=== PATIENT | female | born 1955 | race Caucasian/White ===

== ENCOUNTER 2022-04-16 19:22 | Inpatient (IN) ==
[2022-04-16] MEDS ORDERED: Cefepime 1 GM in NS 0.9% 50 ML 50 ML IVPB ONE (19:25)
[2022-04-16] MEDS ORDERED: methylPREDNISolone SOD SUCC 125 mg 2 ML VIAL IV ONE (19:25)
[2022-04-16] MEDS ORDERED: NS 0.9% 1000 ml BAG 1,000 ML IV ONE (19:25)
[2022-04-16] MEDS ORDERED: Vancomycin 1,000 MG in NS 0.9% 250 ml 250 ML IVPB ONE (19:25)
[2022-04-16] MEDS ORDERED: Vancomycin 1,000 MG - ED ONCE IVPB ONE (19:30)
[2022-04-16] MEDS ORDERED: Cefepime 1 GM IV - ED ONCE IV ONE (19:30)
[2022-04-16 19:53] LABS: Hematocrit 27 % (35-47); Hemoglobin 8.6 g/dL (12.0-16.0); Mean Corpuscular HGB Conc 32 g/dL (31-36); Mean Corpuscular Hemoglobin 29 pg (27-31); Mean Corpuscular Volume 89 fL (80-97); Mean Platelet Volume 8.3 fL (7.4-10.4); Platelet Count 309 10^3/uL (150-450); Red Blood Count 3.02 10^6 /uL (3.70-4.87); Red Cell Distribution Width 17 % (10-15); White Blood Count 8.6 10^3/uL (3.5-10.8)
[2022-04-16 20:31] LABS: Albumin 3.8 g/dL (3.2-5.2); Albumin/Globulin Ratio 1.5 (1-3); C Reactive Protein 49.99 mg/L (<8.01); Globulin 2.5 g/dL (2-4); Potassium 3.3 mmol/L (3.5-5.0); Total Bilirubin 0.4 mg/dL (0.2-1.0); Total Protein 6.3 g/dL (6.4-8.9)
[2022-04-16 20:35] LABS: CKMB ng/mL 2.8 ng/mL (0.6-6.3)
[2022-04-16 20:36] LABS: ABS Basophils 0.1 10^3/ul (0-0.2); ABS Eosinophils 0.1 10^3/ul (0-0.6); ABS Lymphocytes 1.9 10^3/ul (1.0-4.8); ABS Monocytes 1.1 10^3/ul (0-0.8); ABS Neutrophils 5.3 10^3/ul (1.5-7.7); Eosinophil % 1.6 %; Lymphocyte % 21.9 %; Nucleated Red Blood Cells % 0.1
[2022-04-16] MEDS ORDERED: Iodixanol (CONTRAST) 320 MG/ML 100 ML SDV IV ONE (20:43)
[2022-04-16 21:29] LABS: High Sensitivity Troponin 1 Hr 54 pg/mL (<15)
[2022-04-17] MEDS ORDERED: Nicotine GUM 4MG FRUIT FLAVOR PO PRN (00:57)
[2022-04-17] MEDS ORDERED: Albuterol HFA INHALER 8 gm MDI INH PRN (00:57)
[2022-04-17] MEDS ORDERED: Potassium Chlor 20 meq TAB.ER PO ONE (06:09)
[2022-04-17] MEDS ORDERED: Mometasone/Formoter 200/5 MDI INH SCH (07:00)
[2022-04-17 08:09] LABS: Hematocrit 26 % (35-47); Hemoglobin 8.5 g/dL (12.0-16.0); Mean Corpuscular HGB Conc 33 g/dL (31-36); Mean Corpuscular Hemoglobin 29 pg (27-31); Mean Corpuscular Volume 90 fL (80-97); Platelet Count 253 10^3/uL (150-450); Red Blood Count 2.89 10^6 /uL (3.70-4.87); Red Cell Distribution Width 17 % (10-15); White Blood Count 6.2 10^3/uL (3.5-10.8)
[2022-04-17] MEDS: SPIRIVA Respimat (tiotropium) 2.5 mcg/inh Inhaler INH SCH (08:40)
[2022-04-17 09:02] LABS: Calcium 8.7 mg/dL (8.6-10.3); Magnesium 1.8 mg/dL (1.9-2.7); Potassium 4.1 mmol/L (3.5-5.0); eGFR CKD-EPI 63.7 (>60)
[2022-04-17] MEDS ORDERED: Dextrose 50% Syringe 50 ml 25 GM/50 ML SYRINGE IV PUSH PRN (09:03)
[2022-04-17] MEDS ORDERED: Furosemide 20 mg/2 ml IV VIAL IV ONE (09:05)
[2022-04-17] MEDS ORDERED: Furosemide 20 mg/2 ml IV VIAL ONE (09:14)
[2022-04-17 10:30] LABS: ABS Lymphocytes 0.5 10^3/ul (1.0-4.8); ABS Monocytes 0.1 10^3/ul (0-0.8); ABS Neutrophils 5.5 10^3/ul (1.5-7.7); Lymphocyte % 8.7 %
[2022-04-17 10:32] LABS: RBC Morphology Normal (Normal)
[2022-04-17] MEDS: cefTRIAXone 1 gm/50 mL D5W 1 GM/50 ML BAG IV SCH (13:03)
[2022-04-17] MEDS ORDERED: Perflutren Lipid Microsphere 3 ML VIAL ONE (13:31)
[2022-04-17] MEDS ORDERED: Magnesium Sulfate IV 1GM/100ML 1 GM/100 ML BAG IV ONE (14:46)
[2022-04-17] MEDS: Albuterol HFA INHALER 8 gm MDI INH PRN (23:07)
[2022-04-18 06:51] LABS: Magnesium 2.2 mg/dL (1.9-2.7)
[2022-04-18] MEDS: SPIRIVA Respimat (tiotropium) 2.5 mcg/inh Inhaler INH SCH (07:15)
[2022-04-18 08:14] LABS: ABS Basophils 0.1 10^3/ul (0-0.2); ABS Lymphocytes 1.1 10^3/ul (1.0-4.8); ABS Monocytes 1.2 10^3/ul (0-0.8); ABS Neutrophils 8.7 10^3/ul (1.5-7.7); Hematocrit 25 % (35-47); Hemoglobin 8.1 g/dL (12.0-16.0); Lymphocyte % 9.6 %; Mean Corpuscular HGB Conc 32 g/dL (31-36); Mean Corpuscular Hemoglobin 29 pg (27-31); Mean Corpuscular Volume 91 fL (80-97); Mean Platelet Volume 11.1 fL (7.4-10.4); Platelet Count 279 10^3/uL (150-450); Red Blood Count 2.78 10^6 /uL (3.70-4.87); Red Cell Distribution Width 17 % (10-15); White Blood Count 11.1 10^3/uL (3.5-10.8)
[2022-04-18 08:25] LABS: Calcium 9.2 mg/dL (8.6-10.3); Potassium 4.5 mmol/L (3.5-5.0)
[2022-04-18] MEDS ORDERED: Albuterol 2.5mg/3 ml (0.083%) NEB.SOLN INH PRN (09:16)
[2022-04-18] MEDS: methylPREDNISolone SOD SUCC 125 mg 2 ML VIAL IV SCH ×2 (09:28→20:28)
[2022-04-18] MEDS: Albuterol HFA INHALER 8 gm MDI INH PRN (09:28)
[2022-04-18] MEDS: cefTRIAXone 1 gm/50 mL D5W 1 GM/50 ML BAG IV SCH (09:33)
[2022-04-18 10:06] LABS: Ferritin 185.3 ng/mL (11-307)
[2022-04-18 10:09] LABS: Folate 6.57 ng/mL (5.90-24.80)
[2022-04-18] MEDS ORDERED: Albuterol 2.5mg/3 ml (0.083%) NEB.SOLN INH STA (10:33)
[2022-04-18 14:50] LABS: PCO2 Arterial 61 mmHg (35-45); PO2 Arterial 65 mmHg (80-100)
[2022-04-19 05:36] LABS: Hematocrit 26 % (35-47); Hemoglobin 8.5 g/dL (12.0-16.0); Mean Corpuscular HGB Conc 33 g/dL (31-36); Mean Corpuscular Hemoglobin 30 pg (27-31); Mean Corpuscular Volume 91 fL (80-97); Mean Platelet Volume 8.9 fL (7.4-10.4); Platelet Count 276 10^3/uL (150-450); Red Blood Count 2.85 10^6 /uL (3.70-4.87); Red Cell Distribution Width 17 % (10-15); White Blood Count 9.7 10^3/uL (3.5-10.8)
[2022-04-19 06:05] LABS: Magnesium 2.4 mg/dL (1.9-2.7); Potassium 4.4 mmol/L (3.5-5.0); eGFR CKD-EPI 62.2 (>60)
[2022-04-19] MEDS: SPIRIVA Respimat (tiotropium) 2.5 mcg/inh Inhaler INH SCH (07:16)
[2022-04-19] MEDS ORDERED: Iron Sucrose 200 MG in NS 0.9% 100 ml BAG 100 ML IVPB ONE (08:00)
[2022-04-19 08:59] LABS: RBC Morphology Normal (Normal)
[2022-04-19 09:00] LABS: ABS Lymphocytes 0.6 10^3/ul (1.0-4.8); ABS Monocytes 0.5 10^3/ul (0-0.8); ABS Neutrophils 8.6 10^3/ul (1.5-7.7)
[2022-04-19] MEDS: methylPREDNISolone SOD SUCC 125 mg 2 ML VIAL IV SCH ×2 (09:39→21:36)
[2022-04-19] MEDS: cefTRIAXone 1 gm/50 mL D5W 1 GM/50 ML BAG IV SCH (10:19)
[2022-04-19] MEDS: Albuterol 2.5mg/3 ml (0.083%) NEB.SOLN INH SCH ×3 (15:11→21:32)
[2022-04-19] MEDS ORDERED: Furosemide 40 mg/4 ml IV VIAL IV SLOW PU ONE (17:10)
[2022-04-19] MEDS: Albuterol HFA INHALER 8 gm MDI INH PRN (21:33)
[2022-04-19] MEDS: Cefepime 2 GM in Dextrose 2 GM/50 ML BAG IV SCH (21:36)
[2022-04-20] MEDS: Albuterol 2.5mg/3 ml (0.083%) NEB.SOLN INH SCH ×3 (04:46→09:38)
[2022-04-20 06:46] LABS: ABS Lymphocytes 0.6 10^3/ul (1.0-4.8); ABS Monocytes 0.5 10^3/ul (0-0.8); ABS Neutrophils 9.6 10^3/ul (1.5-7.7); Eosinophil % 0.1 %; Hematocrit 27 % (35-47); Hemoglobin 8.9 g/dL (12.0-16.0); Lymphocyte % 5.4 %; Mean Corpuscular HGB Conc 33 g/dL (31-36); Mean Corpuscular Hemoglobin 30 pg (27-31); Mean Corpuscular Volume 90 fL (80-97); Mean Platelet Volume 9.2 fL (7.4-10.4); Nucleated Red Blood Cells % 0.1; Platelet Count 288 10^3/uL (150-450); Red Blood Count 2.99 10^6 /uL (3.70-4.87); Red Cell Distribution Width 17 % (10-15); White Blood Count 10.8 10^3/uL (3.5-10.8)
[2022-04-20 06:51] LABS: Calcium 9.2 mg/dL (8.6-10.3); Potassium 3.8 mmol/L (3.5-5.0); eGFR CKD-EPI 62.9 (>60)
[2022-04-20] MEDS: SPIRIVA Respimat (tiotropium) 2.5 mcg/inh Inhaler INH SCH (07:10)
[2022-04-20] MEDS: Cefepime 2 GM in Dextrose 2 GM/50 ML BAG IV SCH ×2 (09:52→21:30)
[2022-04-20] MEDS: methylPREDNISolone SOD SUCC 125 mg 2 ML VIAL IV SCH ×2 (09:55→21:30)
[2022-04-20 11:11] LABS: High Sensitivity Troponin 1 Hr 31 pg/mL (<15)
[2022-04-20] MEDS ORDERED: Furosemide 40 mg/4 ml IV VIAL IV SLOW PU ONE (11:13)
[2022-04-20] MEDS: Budesonide NEB 0.5 MG/2 ML NEB.SOLN INH SCH ×2 (11:59→19:24)
[2022-04-20] MEDS ORDERED: Albuterol 2.5mg/3 ml (0.083%) NEB.SOLN INH SCH ×3 (13:00→15:00)
[2022-04-20] MEDS: Albuterol HFA INHALER 8 gm MDI INH PRN (13:53)
[2022-04-20] MEDS: Albuterol/Ipratropium NEB.SOL (2.5/0.5 MG) 3 ML NEB.SOLN INH SCH ×2 (19:24→22:52)
[2022-04-21] MEDS: Albuterol/Ipratropium NEB.SOL (2.5/0.5 MG) 3 ML NEB.SOLN INH SCH ×6 (02:28→23:57)
[2022-04-21 06:46] LABS: Hematocrit 28 % (35-47); Mean Corpuscular HGB Conc 32 g/dL (31-36); Mean Corpuscular Hemoglobin 29 pg (27-31); Mean Corpuscular Volume 90 fL (80-97); Mean Platelet Volume 8.5 fL (7.4-10.4); Platelet Count 269 10^3/uL (150-450); Red Blood Count 3.08 10^6 /uL (3.70-4.87); Red Cell Distribution Width 17 % (10-15); White Blood Count 12.7 10^3/uL (3.5-10.8)
[2022-04-21] MEDS: SPIRIVA Respimat (tiotropium) 2.5 mcg/inh Inhaler INH SCH (07:09)
[2022-04-21] MEDS: Budesonide NEB 0.5 MG/2 ML NEB.SOLN INH SCH ×2 (07:09→19:54)
[2022-04-21 07:13] LABS: Calcium 8.9 mg/dL (8.6-10.3); Potassium 3.8 mmol/L (3.5-5.0); eGFR CKD-EPI 58.7 (>60)
[2022-04-21] MEDS: methylPREDNISolone SOD SUCC 125 mg 2 ML VIAL IV SCH ×2 (08:53→20:51)
[2022-04-21] MEDS: Cefepime 2 GM in Dextrose 2 GM/50 ML BAG IV SCH ×2 (08:55→20:52)
[2022-04-21 11:25] LABS: ABS Basophils 0.1 10^3/ul (0-0.2); ABS Lymphocytes 0.6 10^3/ul (1.0-4.8); ABS Monocytes 0.8 10^3/ul (0-0.8); ABS Neutrophils 11.3 10^3/ul (1.5-7.7); Lymphocyte % 4.4 %; Nucleated Red Blood Cells % 0.1
[2022-04-21] MEDS ORDERED: Furosemide 40 mg/4 ml IV VIAL IV SLOW PU ONE (16:52)
[2022-04-21] MEDS: Ondansetron 4 mg VIAL 2 MG/ML 2 ml VIAL IV PRN (17:15)
[2022-04-22] MEDS: Albuterol/Ipratropium NEB.SOL (2.5/0.5 MG) 3 ML NEB.SOLN INH SCH ×6 (03:13→23:11)
[2022-04-22 05:45] LABS: Hematocrit 28 % (35-47); Hemoglobin 9.2 g/dL (12.0-16.0); Mean Corpuscular HGB Conc 33 g/dL (31-36); Mean Corpuscular Hemoglobin 29 pg (27-31); Mean Corpuscular Volume 89 fL (80-97); Mean Platelet Volume 8.1 fL (7.4-10.4); Platelet Count 258 10^3/uL (150-450); Red Blood Count 3.11 10^6 /uL (3.70-4.87); Red Cell Distribution Width 17 % (10-15); White Blood Count 12.8 10^3/uL (3.5-10.8)
[2022-04-22 06:03] LABS: ABS Lymphocytes 0.5 10^3/ul (1.0-4.8); ABS Monocytes 0.8 10^3/ul (0-0.8); ABS Neutrophils 11.4 10^3/ul (1.5-7.7); Eosinophil % 0.1 %; Lymphocyte % 3.6 %; Nucleated Red Blood Cells % 0.1
[2022-04-22 06:19] LABS: Calcium 8.5 mg/dL (8.6-10.3); eGFR CKD-EPI 64.5 (>60)
[2022-04-22] MEDS: Budesonide NEB 0.5 MG/2 ML NEB.SOLN INH SCH ×2 (07:00→19:38)
[2022-04-22] MEDS: SPIRIVA Respimat (tiotropium) 2.5 mcg/inh Inhaler INH SCH (07:00)
[2022-04-22] MEDS: Cefepime 2 GM in Dextrose 2 GM/50 ML BAG IV SCH ×2 (09:19→22:14)
[2022-04-22] MEDS: methylPREDNISolone SOD SUCC 125 mg 2 ML VIAL IV SCH ×2 (09:19→21:46)
[2022-04-22] MEDS: Albuterol HFA INHALER 8 gm MDI INH PRN (11:08)
[2022-04-23] MEDS: Albuterol/Ipratropium NEB.SOL (2.5/0.5 MG) 3 ML NEB.SOLN INH SCH ×5 (04:19→19:36)
[2022-04-23 05:14] LABS: Hematocrit 30 % (35-47); Hemoglobin 9.4 g/dL (12.0-16.0); Mean Corpuscular HGB Conc 32 g/dL (31-36); Mean Corpuscular Hemoglobin 28 pg (27-31); Mean Corpuscular Volume 89 fL (80-97); Mean Platelet Volume 8.5 fL (7.4-10.4); Platelet Count 266 10^3/uL (150-450); Red Blood Count 3.31 10^6 /uL (3.70-4.87); Red Cell Distribution Width 17 % (10-15); White Blood Count 15.2 10^3/uL (3.5-10.8)
[2022-04-23 05:35] LABS: ABS Lymphocytes 0.5 10^3/ul (1.0-4.8); ABS Monocytes 1.1 10^3/ul (0-0.8); ABS Neutrophils 13.6 10^3/ul (1.5-7.7); Anisocytosis 1+; Lymphocyte % 3.1 %; Nucleated Red Blood Cells % 0.3
[2022-04-23 05:44] LABS: Calcium 8.6 mg/dL (8.6-10.3); Magnesium 2.4 mg/dL (1.9-2.7); Potassium 4.2 mmol/L (3.5-5.0)
[2022-04-23] MEDS: Budesonide NEB 0.5 MG/2 ML NEB.SOLN INH SCH ×2 (07:09→19:35)
[2022-04-23] MEDS: SPIRIVA Respimat (tiotropium) 2.5 mcg/inh Inhaler INH SCH (07:10)
[2022-04-23] MEDS: methylPREDNISolone SOD SUCC 125 mg 2 ML VIAL IV SCH ×2 (07:23→21:40)
[2022-04-23] MEDS: Cefepime 2 GM in Dextrose 2 GM/50 ML BAG IV SCH (07:44)
[2022-04-23 11:10] LABS: PCO2 Arterial 58 mmHg (35-45); PO2 Arterial 101 mmHg (80-100)
[2022-04-23] MEDS: Meropenem 1 GM PREMIX(*) 1 GM/50 ML BAG IV SCH (18:18)
[2022-04-24] MEDS: Albuterol/Ipratropium NEB.SOL (2.5/0.5 MG) 3 ML NEB.SOLN INH SCH ×5 (00:03→19:43)
[2022-04-24] MEDS: Meropenem 1 GM PREMIX(*) 1 GM/50 ML BAG IV SCH ×3 (00:33→17:18)
[2022-04-24] MEDS: Albuterol HFA INHALER 8 gm MDI INH PRN (03:12)
[2022-04-24 05:50] LABS: Hematocrit 31 % (35-47); Hemoglobin 9.6 g/dL (12.0-16.0); Mean Corpuscular HGB Conc 31 g/dL (31-36); Mean Corpuscular Hemoglobin 28 pg (27-31); Mean Corpuscular Volume 89 fL (80-97); Mean Platelet Volume 8.7 fL (7.4-10.4); Platelet Count 258 10^3/uL (150-450); Red Blood Count 3.46 10^6 /uL (3.70-4.87); Red Cell Distribution Width 17 % (10-15); White Blood Count 19.1 10^3/uL (3.5-10.8)
[2022-04-24 06:06] LABS: ABS Eosinophils 0.1 10^3/ul (0-0.6); ABS Lymphocytes 0.5 10^3/ul (1.0-4.8); ABS Neutrophils 17.5 10^3/ul (1.5-7.7); Eosinophil % 0.5 %; Lymphocyte % 2.8 %; Nucleated Red Blood Cells % 0.2
[2022-04-24 06:23] LABS: Calcium 8.5 mg/dL (8.6-10.3); Magnesium 2.2 mg/dL (1.9-2.7); Potassium 4.5 mmol/L (3.5-5.0); eGFR CKD-EPI 86.1 (>60)
[2022-04-24] MEDS: SPIRIVA Respimat (tiotropium) 2.5 mcg/inh Inhaler INH SCH (07:58)
[2022-04-24] MEDS: Budesonide NEB 0.5 MG/2 ML NEB.SOLN INH SCH ×2 (07:59→19:43)
[2022-04-24] MEDS: methylPREDNISolone SOD SUCC 125 mg 2 ML VIAL IV SCH ×2 (08:18→20:29)
[2022-04-24 11:26] LABS: Urine Appearance Clear; Urine Bilirubin Negative (Negative); Urine Blood Trace (Intact) (Negative); Urine Color Yellow; Urine Glucose Negative (Negative); Urine Ketones Negative (Negative); Urine Nitrite Negative (Negative); Urine Protein Trace (Negative); Urine Urobilinogen 0.2 (Negative) (Negative); Urine pH 6.5 (5.0-9.0)
[2022-04-24 11:31] LABS: Urine Bacteria Absent (Absent); Urine Red Blood Cell Trace(0-2/hpf) (Absent); Urine Squamous Epithelial Cell Present (Absent); Urine White Blood Cell Trace(0-5/hpf) (Absent)
[2022-04-24] MEDS ORDERED: Furosemide 20 mg/2 ml IV VIAL IV ONE (11:43)
[2022-04-25] MEDS: Meropenem 1 GM PREMIX(*) 1 GM/50 ML BAG IV SCH ×3 (00:51→17:01)
[2022-04-25 05:42] LABS: Hematocrit 32 % (35-47); Hemoglobin 10.4 g/dL (12.0-16.0); Mean Corpuscular HGB Conc 33 g/dL (31-36); Mean Corpuscular Hemoglobin 29 pg (27-31); Mean Corpuscular Volume 89 fL (80-97); Mean Platelet Volume 8.9 fL (7.4-10.4); Platelet Count 232 10^3/uL (150-450); Red Blood Count 3.55 10^6 /uL (3.70-4.87); Red Cell Distribution Width 17 % (10-15); White Blood Count 16.1 10^3/uL (3.5-10.8)
[2022-04-25 05:47] LABS: ABS Lymphocytes 0.5 10^3/ul (1.0-4.8); ABS Neutrophils 14.5 10^3/ul (1.5-7.7); Eosinophil % 0.1 %; Lymphocyte % 2.9 %; Nucleated Red Blood Cells % 0.1
[2022-04-25 05:56] LABS: Calcium 8.7 mg/dL (8.6-10.3); Magnesium 2.2 mg/dL (1.9-2.7); Potassium 3.9 mmol/L (3.5-5.0); eGFR CKD-EPI 93.3 (>60)
[2022-04-25] MEDS: Budesonide NEB 0.5 MG/2 ML NEB.SOLN INH SCH ×2 (07:02→18:48)
[2022-04-25] MEDS: Albuterol/Ipratropium NEB.SOL (2.5/0.5 MG) 3 ML NEB.SOLN INH SCH ×3 (07:02→18:47)
[2022-04-25] MEDS: SPIRIVA Respimat (tiotropium) 2.5 mcg/inh Inhaler INH SCH (07:03)
[2022-04-25] MEDS: methylPREDNISolone SOD SUCC 125 mg 2 ML VIAL IV SCH ×2 (09:18→20:44)
[2022-04-25 17:04] LABS: Adenovirus Undetected (Undetected); Bordetella parapertussis Undetected (Undetected); Bordetella pertussis Undetected (Undetected); Chlamydophila pneumoniae Undetected (Undetected); Coronavirus 229E Undetected (Undetected); Coronavirus HKU1 Undetected (Undetected); Coronavirus NL63 Undetected (Undetected); Coronavirus OC43 Undetected (Undetected); Human Metapneumovirus Undetected (Undetected); Human Rhinovirus/Enterovirus Undetected (Undetected); Influenza A Undetected (Undetected); Influenza B Undetected (Undetected); Mycoplasmoides pneumoniae Undetected (Undetected); Parainfluenza Virus 1 Undetected (Undetected); Parainfluenza Virus 2 Undetected (Undetected); Parainfluenza Virus 3 Undetected (Undetected); Parainfluenza Virus 4 Undetected (Undetected); Respiratory Syncytial Virus Undetected (Undetected); Specimen Source NASOPHARYNGEAL SWAB
[2022-04-25] MEDS ORDERED: Levalbuterol 1.25MG/0.5ML NEB.SOL INH SCH (19:00)
[2022-04-26] MEDS: Levalbuterol 1.25MG/0.5ML NEB.SOL INH SCH ×4 (01:00→19:07)
[2022-04-26] MEDS: Ondansetron 4 mg VIAL 2 MG/ML 2 ml VIAL IV PRN (02:33)
[2022-04-26] MEDS ORDERED: Ondansetron 4 mg VIAL 2 MG/ML 2 ml VIAL IV ONE (04:26)
[2022-04-26 05:24] LABS: Hematocrit 31 % (35-47); Hemoglobin 10.4 g/dL (12.0-16.0); Mean Corpuscular HGB Conc 33 g/dL (31-36); Mean Corpuscular Hemoglobin 30 pg (27-31); Mean Corpuscular Volume 90 fL (80-97); Mean Platelet Volume 8.4 fL (7.4-10.4); Platelet Count 187 10^3/uL (150-450); Red Blood Count 3.51 10^6 /uL (3.70-4.87); Red Cell Distribution Width 17 % (10-15); White Blood Count 15.9 10^3/uL (3.5-10.8)
[2022-04-26 05:50] LABS: Calcium 8.7 mg/dL (8.6-10.3); Magnesium 2.2 mg/dL (1.9-2.7); Potassium 4.7 mmol/L (3.5-5.0); eGFR CKD-EPI 87.4 (>60)
[2022-04-26 06:01] LABS: Anisocytosis 1+; RBC Morphology Normal (Normal)
[2022-04-26 06:03] LABS: ABS Eosinophils 0.1 10^3/ul (0-0.6); ABS Lymphocytes 0.5 10^3/ul (1.0-4.8); ABS Monocytes 0.8 10^3/ul (0-0.8); ABS Neutrophils 14.4 10^3/ul (1.5-7.7); Eosinophil % 0.8 %
[2022-04-26] MEDS: Budesonide NEB 0.5 MG/2 ML NEB.SOLN INH SCH ×2 (07:42→19:08)
[2022-04-26] MEDS: SPIRIVA Respimat (tiotropium) 2.5 mcg/inh Inhaler INH SCH (07:42)
[2022-04-26] MEDS: methylPREDNISolone SOD SUCC 125 mg 2 ML VIAL IV SCH (10:54)
[2022-04-26 15:32] LABS: Rapid COVID-19 Molecular Undetected (Undetected)
[2022-04-26] MEDS ORDERED: Furosemide 40 mg/4 ml IV VIAL IV ONE (15:55)
[2022-04-27] MEDS: Levalbuterol 1.25MG/0.5ML NEB.SOL INH SCH ×3 (02:04→12:36)
[2022-04-27] MEDS: Budesonide NEB 0.5 MG/2 ML NEB.SOLN INH SCH (07:21)
[2022-04-27] MEDS: SPIRIVA Respimat (tiotropium) 2.5 mcg/inh Inhaler INH SCH (07:23)
[2022-04-27 13:55] VITALS: BP 126/68
== END 2022-04-27 13:50 | DRG 140 ==
LOC: ED 19:22 → EDHOLD 04-17 01:17 → SUATTDRO 04-17 01:17 → EDHOLD 04-17 02:12 → MEDTELE 04-17 02:25
PROVIDERS: ADMIT Internal Medicine; ATTEND Internal Medicine

== ENCOUNTER 2022-05-13 12:20 | Inpatient (IN) ==
[2022-05-13 12:58] LABS: Hematocrit 25 % (35-47); Hemoglobin 7.9 g/dL (12.0-16.0); Mean Corpuscular HGB Conc 32 g/dL (31-36); Mean Corpuscular Hemoglobin 29 pg (27-31); Mean Corpuscular Volume 89 fL (80-97); Mean Platelet Volume 8.4 fL (7.4-10.4); Platelet Count 157 10^3/uL (150-450); Red Blood Count 2.76 10^6 /uL (3.70-4.87); Red Cell Distribution Width 18 % (10-15); White Blood Count 3.9 10^3/uL (3.5-10.8)
[2022-05-13 13:00] LABS: ABS Lymphocytes 0.7 10^3/ul (1.0-4.8); ABS Monocytes 0.5 10^3/ul (0-0.8); ABS Neutrophils 2.7 10^3/ul (1.5-7.7); Eosinophil % 0.7 %; Lymphocyte % 18.5 %; Nucleated Red Blood Cells % 0.1
[2022-05-13 13:13] LABS: Activated Partial Thrombo Time 19.4 seconds (26.0-38.0); INR 1.41 (0.89-1.11)
[2022-05-13] MEDS ORDERED: Lactated Ringers 500 ml BAG 500 ML IV ONE (13:19)
[2022-05-13 13:20] LABS: High Sens Troponin Baseline 127 pg/mL (<15)
[2022-05-13] MEDS ORDERED: Lactated Ringers 1000 ml BAG 1,000 ML IV ONE (13:31)
[2022-05-13] MEDS ORDERED: Cefepime 2 GM in Dextrose 2 GM/50 ML BAG IV ONE (13:33)
[2022-05-13] MEDS ORDERED: Vancomycin 1,000 MG in NS 0.9% 250 ml 250 ML IVPB ONE ×2 (13:33→20:00)
[2022-05-13 13:39] LABS: ALT 18 U/L (7-52); Albumin 3.3 g/dL (3.2-5.2); Albumin/Globulin Ratio 1.4 (1-3); Alkaline Phosphatase 85 U/L (35-149); Blood Urea Nitrogen 17 mg/dL (6-24); C Reactive Protein 108.65 mg/L (<8.01); CO2 Carbon Dioxide 33 mmol/L (22-32); Calcium 8.3 mg/dL (8.6-10.3); Chloride 98 mmol/L (101-111); Globulin 2.3 g/dL (2-4); Glucose 136 mg/dL (70-100); Sodium 140 mmol/L (135-145); Total Protein 5.6 g/dL (6.4-8.9); eGFR CKD-EPI 66.1 (>60)
[2022-05-13 13:44] LABS: Anion Gap 9 mmol/L (2-11)
[2022-05-13] MEDS ORDERED: Pantoprazole VIAL 40 MG VIAL IV ONE (14:48)
[2022-05-13] MEDS ORDERED: Iodixanol (CONTRAST) 320 MG/ML 100 ML SDV IV ONE (15:02)
[2022-05-13 15:12] LABS: Potassium Redraw 4.3 mmol/L (3.5-5.0)
[2022-05-13 17:03] LABS: Urine Appearance Clear; Urine Bilirubin Negative (Negative); Urine Blood Negative (Negative); Urine Color Yellow; Urine Glucose Negative (Negative); Urine Ketones Negative (Negative); Urine Nitrite Negative (Negative); Urine Protein Negative (Negative); Urine Urobilinogen 0.2 (Negative) (Negative); Urine pH 5.5 (5.0-9.0)
[2022-05-13] MEDS ORDERED: Albuterol HFA INHALER 8 gm MDI INH PRN (17:40)
[2022-05-13] MEDS ORDERED: Dextrose 50% Syringe 50 ml 25 GM/50 ML SYRINGE IV PUSH PRN (17:54)
[2022-05-13] MEDS ORDERED: Vancomycin per Pharmacy 1 EA NOTE FOLLOW UP SCH (19:00)
[2022-05-13] MEDS ORDERED: Cefepime 2 GM in Dextrose 2 GM/50 ML BAG IV SCH (19:00)
[2022-05-13] MEDS: Mometasone/Formoter 200/5 MDI INH SCH (21:09)
[2022-05-13] MEDS: Levalbuterol 1.25MG/0.5ML NEB.SOL INH SCH (21:09)
[2022-05-14 01:11] LABS: Hematocrit 22 % (35-47); Hemoglobin 7.2 g/dL (12.0-16.0)
[2022-05-14] MEDS: Levalbuterol 1.25MG/0.5ML NEB.SOL INH SCH ×4 (02:19→20:08)
[2022-05-14] MEDS: Cefepime 2 GM in Dextrose 2 GM/50 ML BAG IV SCH ×2 (02:51→19:24)
[2022-05-14 05:56] LABS: ABS Eosinophils 0.1 10^3/ul (0-0.6); ABS Monocytes 0.4 10^3/ul (0-0.8); ABS Neutrophils 1.4 10^3/ul (1.5-7.7); Eosinophil % 1.9 %; Hematocrit 22 % (35-47); Hemoglobin 7.1 g/dL (12.0-16.0); Lymphocyte % 34.7 %; Mean Corpuscular HGB Conc 33 g/dL (31-36); Mean Corpuscular Hemoglobin 29 pg (27-31); Mean Corpuscular Volume 89 fL (80-97); Nucleated Red Blood Cells % 0.2; Platelet Count 168 10^3/uL (150-450); Red Blood Count 2.47 10^6 /uL (3.70-4.87); Red Cell Distribution Width 19 % (10-15); White Blood Count 2.9 10^3/uL (3.5-10.8)
[2022-05-14 06:10] LABS: Calcium 8.2 mg/dL (8.6-10.3); Magnesium 1.8 mg/dL (1.9-2.7); Potassium 3.6 mmol/L (3.5-5.0)
[2022-05-14 06:16] LABS: Phosphorus 3.4 mg/dL (2.5-5.0); eGFR CKD-EPI 82.2 (>60)
[2022-05-14] MEDS ORDERED: Perflutren Lipid Microsphere 3 ML VIAL ONE (08:37)
[2022-05-14] MEDS: SPIRIVA Respimat (tiotropium) 2.5 mcg/inh Inhaler INH SCH (09:19)
[2022-05-14] MEDS: Mometasone/Formoter 200/5 MDI INH SCH ×2 (09:19→20:08)
[2022-05-14] MEDS: Pantoprazole VIAL 40 MG VIAL IV SCH ×2 (09:37→21:18)
[2022-05-14] MEDS: Vancomycin 1000 MG in NS 0.9% 250 ML IVPB SCH ×2 (09:50→21:30)
[2022-05-14] MEDS ORDERED: Furosemide 40 mg/4 ml IV VIAL IV SLOW PU ONE (10:58)
[2022-05-14] MEDS: methylPREDNISolone SOD SUCC 40 mg/ml 1 ml VIAL IV SCH ×2 (11:21→17:57)
[2022-05-14] MEDS ORDERED: Iron Sucrose 200 MG in NS 0.9% 100 ml BAG 100 ML IVPB ONE (11:40)
[2022-05-14] MEDS ORDERED: Albuterol/Ipratropium NEB.SOL (2.5/0.5 MG) 3 ML NEB.SOLN INH SCH (13:00)
[2022-05-14] MEDS: oxyCODONE SR 10 mg TAB PO SCH (13:36)
[2022-05-14] MEDS: dilTIAZem 30 MG TAB PO SCH ×2 (13:38→17:37)
[2022-05-14] MEDS ORDERED: Potassium Chlor 20 meq TAB.ER PO ONE (15:21)
[2022-05-14] MEDS ORDERED: Magnesium Sulfate IV 1GM/100ML 1 GM/100 ML BAG IV ONE (15:21)
[2022-05-14] MEDS: Levalbuterol 1.25MG/0.5ML NEB.SOL INH PRN (15:39)
[2022-05-14] MEDS: CEFEPIME 2 GM in Dextrose 50 mL IV SCH (17:47)
[2022-05-15] MEDS: dilTIAZem 30 MG TAB PO SCH ×4 (00:19→18:39)
[2022-05-15] MEDS: Nystatin TOP POWDER 15 GM BTL TOPICAL SCH ×3 (00:19→20:43)
[2022-05-15] MEDS: oxyCODONE SR 10 mg TAB PO SCH ×2 (00:19→11:32)
[2022-05-15] MEDS: Levalbuterol 1.25MG/0.5ML NEB.SOL INH SCH ×4 (02:19→19:58)
[2022-05-15] MEDS: methylPREDNISolone SOD SUCC 40 mg/ml 1 ml VIAL IV SCH ×3 (03:06→20:41)
[2022-05-15] MEDS: CEFEPIME 2 GM in Dextrose 50 mL IV SCH ×2 (05:34→19:45)
[2022-05-15 06:08] LABS: Hematocrit 24 % (35-47); Hemoglobin 7.8 g/dL (12.0-16.0); Mean Corpuscular HGB Conc 33 g/dL (31-36); Mean Corpuscular Hemoglobin 29 pg (27-31); Mean Corpuscular Volume 88 fL (80-97); Mean Platelet Volume 8.1 fL (7.4-10.4); Platelet Count 185 10^3/uL (150-450); Red Cell Distribution Width 18 % (10-15); White Blood Count 3.4 10^3/uL (3.5-10.8)
[2022-05-15 06:35] LABS: Calcium 8.5 mg/dL (8.6-10.3); Potassium 4.2 mmol/L (3.5-5.0); eGFR CKD-EPI 83.5 (>60)
[2022-05-15] MEDS: Mometasone/Formoter 200/5 MDI INH SCH ×2 (07:42→19:58)
[2022-05-15] MEDS: SPIRIVA Respimat (tiotropium) 2.5 mcg/inh Inhaler INH SCH (07:42)
[2022-05-15] MEDS ORDERED: Vancomycin Trough Check NOTE FOLLOW UP ONE (08:30)
[2022-05-15] MEDS: Pantoprazole VIAL 40 MG VIAL IV SCH ×2 (08:47→20:42)
[2022-05-15 09:01] LABS: Vancomycin Trough 18.6 mcg/mL; eGFR CKD-EPI 88.8 (>60)
[2022-05-15] MEDS: Vancomycin 1000 MG in NS 0.9% 250 ML IVPB SCH (11:37)
[2022-05-15] MEDS ORDERED: Furosemide 40 mg/4 ml IV VIAL IV SLOW PU ONE (15:12)
[2022-05-15] MEDS: Levalbuterol 1.25MG/0.5ML NEB.SOL INH PRN (21:46)
[2022-05-16] MEDS: dilTIAZem 30 MG TAB PO SCH ×4 (00:15→17:43)
[2022-05-16] MEDS: oxyCODONE SR 10 mg TAB PO SCH ×2 (00:15→11:56)
[2022-05-16] MEDS: methylPREDNISolone SOD SUCC 40 mg/ml 1 ml VIAL IV SCH ×3 (03:23→17:43)
[2022-05-16] MEDS: CEFEPIME 2 GM in Dextrose 50 mL IV SCH ×2 (04:58→17:01)
[2022-05-16 05:58] LABS: Hematocrit 28 % (35-47); Hemoglobin 9.1 g/dL (12.0-16.0); Mean Corpuscular HGB Conc 33 g/dL (31-36); Mean Corpuscular Hemoglobin 29 pg (27-31); Mean Corpuscular Volume 88 fL (80-97); Mean Platelet Volume 8.8 fL (7.4-10.4); Platelet Count 209 10^3/uL (150-450); Red Blood Count 3.12 10^6 /uL (3.70-4.87); Red Cell Distribution Width 19 % (10-15); White Blood Count 5.5 10^3/uL (3.5-10.8)
[2022-05-16 06:00] LABS: ABS Lymphocytes 0.5 10^3/ul (1.0-4.8); ABS Monocytes 0.5 10^3/ul (0-0.8); ABS Neutrophils 4.4 10^3/ul (1.5-7.7); ABS Nucleated RBC 0.1 10^3/ul; Lymphocyte % 9.4 %; Nucleated Red Blood Cells % 1.3
[2022-05-16 06:25] LABS: Albumin 3.6 g/dL (3.2-5.2); Albumin/Globulin Ratio 1.4 (1-3); Calcium 8.8 mg/dL (8.6-10.3); Globulin 2.5 g/dL (2-4); Potassium 3.8 mmol/L (3.5-5.0); Total Bilirubin 0.6 mg/dL (0.2-1.0); Total Protein 6.1 g/dL (6.4-8.9); eGFR CKD-EPI 74.4 (>60)
[2022-05-16] MEDS: Pantoprazole VIAL 40 MG VIAL IV SCH ×2 (08:23→21:15)
[2022-05-16] MEDS: Vancomycin 1,500 MG in NS 0.9% 250 ml 250 ML IVPB SCH ×2 (08:24→21:14)
[2022-05-16] MEDS: Nystatin TOP POWDER 15 GM BTL TOPICAL SCH ×2 (08:25→21:16)
[2022-05-16] MEDS: SPIRIVA Respimat (tiotropium) 2.5 mcg/inh Inhaler INH SCH (08:40)
[2022-05-16] MEDS: Mometasone/Formoter 200/5 MDI INH SCH ×2 (08:57→19:50)
[2022-05-16] MEDS: Levalbuterol 1.25MG/0.5ML NEB.SOL INH SCH ×3 (09:01→19:51)
[2022-05-17] MEDS: dilTIAZem 30 MG TAB PO SCH ×4 (00:31→17:08)
[2022-05-17] MEDS: oxyCODONE SR 10 mg TAB PO SCH ×2 (00:31→12:17)
[2022-05-17] MEDS: methylPREDNISolone SOD SUCC 40 mg/ml 1 ml VIAL IV SCH ×3 (04:20→17:07)
[2022-05-17] MEDS: CEFEPIME 2 GM in Dextrose 50 mL IV SCH ×2 (06:36→17:24)
[2022-05-17] MEDS: Levalbuterol 1.25MG/0.5ML NEB.SOL INH SCH ×3 (08:25→18:55)
[2022-05-17 08:27] LABS: Hematocrit 32 % (35-47); Hemoglobin 10.3 g/dL (12.0-16.0); Mean Corpuscular HGB Conc 32 g/dL (31-36); Mean Corpuscular Hemoglobin 29 pg (27-31); Mean Corpuscular Volume 90 fL (80-97); Mean Platelet Volume 8.2 fL (7.4-10.4); Platelet Count 239 10^3/uL (150-450); Red Blood Count 3.57 10^6 /uL (3.70-4.87); Red Cell Distribution Width 19 % (10-15); White Blood Count 7.7 10^3/uL (3.5-10.8)
[2022-05-17] MEDS: Mometasone/Formoter 200/5 MDI INH SCH ×2 (08:29→19:02)
[2022-05-17] MEDS: SPIRIVA Respimat (tiotropium) 2.5 mcg/inh Inhaler INH SCH (08:30)
[2022-05-17] MEDS ORDERED: Vancomycin Trough Check NOTE FOLLOW UP ONE (08:30)
[2022-05-17] MEDS: Vancomycin 1,500 MG in NS 0.9% 250 ml 250 ML IVPB SCH (08:49)
[2022-05-17] MEDS: Nystatin TOP POWDER 15 GM BTL TOPICAL SCH ×2 (08:51→20:13)
[2022-05-17] MEDS: Pantoprazole VIAL 40 MG VIAL IV SCH ×2 (08:52→20:28)
[2022-05-17 09:06] LABS: C Reactive Protein 18.61 mg/L (<8.01); Potassium 4.8 mmol/L (3.5-5.0); eGFR CKD-EPI 76.5 (>60)
[2022-05-17 09:07] LABS: Vancomycin Trough 24.4 mcg/mL; eGFR CKD-EPI 77.6 (>60)
[2022-05-17 10:37] LABS: ABS Lymphocytes 1.4 10^3/ul (1.0-4.8); ABS Monocytes 0.7 10^3/ul (0-0.8); ABS Neutrophils 5.7 10^3/ul (1.5-7.7); Lymphocyte % 18.2 %; Nucleated Red Blood Cells % 0.4
[2022-05-17] MEDS ORDERED: Iodixanol (CONTRAST) 320 MG/ML 100 ML SDV IV ONE (11:21)
[2022-05-17 15:28] LABS: Corrected Retic Count 4.5 % (0.5-1.5); Hematocrit for Retic CNT 30 % (35-47); Immature Retic Fraction 0.66; RBC Retic Count 3.38 10^6/uL (3.70-4.87)
[2022-05-17] MEDS ORDERED: Furosemide 40 mg/4 ml IV VIAL IV SLOW PU ONE (16:08)
[2022-05-17] MEDS ORDERED: Nicotine GUM 4MG FRUIT FLAVOR PO PRN (19:54)
[2022-05-17] MEDS: Nicotine PATCH 7 MG/24 HR PATCH TRANSDERM SCH (21:51)
[2022-05-18] MEDS: dilTIAZem 30 MG TAB PO SCH ×4 (00:03→17:24)
[2022-05-18] MEDS: oxyCODONE SR 10 mg TAB PO SCH ×3 (00:03→21:25)
[2022-05-18] MEDS: methylPREDNISolone SOD SUCC 40 mg/ml 1 ml VIAL IV SCH ×4 (02:59→17:24)
[2022-05-18] MEDS: CEFEPIME 2 GM in Dextrose 50 mL IV SCH ×2 (05:39→17:26)
[2022-05-18] MEDS ORDERED: Vancomycin Random Level NOTE FOLLOW UP ONE (06:00)
[2022-05-18 06:26] LABS: Hematocrit 30 % (35-47); Hemoglobin 9.6 g/dL (12.0-16.0); Mean Corpuscular HGB Conc 32 g/dL (31-36); Mean Corpuscular Hemoglobin 28 pg (27-31); Mean Corpuscular Volume 88 fL (80-97); Mean Platelet Volume 8.6 fL (7.4-10.4); Platelet Count 244 10^3/uL (150-450); Red Blood Count 3.39 10^6 /uL (3.70-4.87); Red Cell Distribution Width 19 % (10-15); White Blood Count 6.2 10^3/uL (3.5-10.8)
[2022-05-18 06:41] LABS: ABS Lymphocytes 0.4 10^3/ul (1.0-4.8); ABS Monocytes 0.7 10^3/ul (0-0.8); Eosinophil % 0.3 %; Lymphocyte % 6.9 %; Nucleated Red Blood Cells % 0.4
[2022-05-18] MEDS: Levalbuterol 1.25MG/0.5ML NEB.SOL INH SCH ×2 (07:10→20:01)
[2022-05-18] MEDS: Mometasone/Formoter 200/5 MDI INH SCH ×2 (07:11→20:00)
[2022-05-18 07:14] LABS: Albumin 3.8 g/dL (3.2-5.2); Albumin/Globulin Ratio 1.5 (1-3); Globulin 2.5 g/dL (2-4); Phosphorus 2.5 mg/dL (2.5-5.0); Potassium 4.1 mmol/L (3.5-5.0); Total Bilirubin 0.5 mg/dL (0.2-1.0); Total Protein 6.3 g/dL (6.4-8.9); Vancomycin Trough 13.7 mcg/mL; eGFR CKD-EPI 83.5 (>60)
[2022-05-18] MEDS: SPIRIVA Respimat (tiotropium) 2.5 mcg/inh Inhaler INH SCH (07:16)
[2022-05-18] MEDS: Pantoprazole VIAL 40 MG VIAL IV SCH ×2 (08:04→21:25)
[2022-05-18] MEDS: Nicotine PATCH 7 MG/24 HR PATCH TRANSDERM SCH (08:10)
[2022-05-18] MEDS: Nystatin TOP POWDER 15 GM BTL TOPICAL SCH ×2 (08:31→21:27)
[2022-05-18] MEDS ORDERED: Morphine 2 MG/ML SYRINGE IV ONE (10:14)
[2022-05-19] MEDS: dilTIAZem 30 MG TAB PO SCH ×2 (00:08→06:13)
[2022-05-19] MEDS: methylPREDNISolone SOD SUCC 40 mg/ml 1 ml VIAL IV SCH ×3 (02:44→09:21)
[2022-05-19 06:08] LABS: Hematocrit 34 % (35-47); Hemoglobin 11.3 g/dL (12.0-16.0); Mean Corpuscular HGB Conc 33 g/dL (31-36); Mean Corpuscular Hemoglobin 30 pg (27-31); Mean Corpuscular Volume 88 fL (80-97); Mean Platelet Volume 8.3 fL (7.4-10.4); Platelet Count 255 10^3/uL (150-450); Red Blood Count 3.84 10^6 /uL (3.70-4.87); Red Cell Distribution Width 18 % (10-15); White Blood Count 8.7 10^3/uL (3.5-10.8)
[2022-05-19] MEDS: CEFEPIME 2 GM in Dextrose 50 mL IV SCH (06:14)
[2022-05-19 06:33] LABS: Calcium 9.3 mg/dL (8.6-10.3); Magnesium 2.1 mg/dL (1.9-2.7); Potassium 4.1 mmol/L (3.5-5.0); eGFR CKD-EPI 88.8 (>60)
[2022-05-19 06:49] LABS: Anisocytosis 1+; Polychromasia 1+; RBC Morphology Normal (Normal)
[2022-05-19 06:50] LABS: ABS Lymphocytes 0.6 10^3/ul (1.0-4.8); ABS Monocytes 0.9 10^3/ul (0-0.8); ABS Neutrophils 7.2 10^3/ul (1.5-7.7); Lymphocyte % 6.9 %; Nucleated Red Blood Cells % 0.2
[2022-05-19] MEDS: Levalbuterol 1.25MG/0.5ML NEB.SOL INH SCH ×2 (07:45→19:08)
[2022-05-19] MEDS: Mometasone/Formoter 200/5 MDI INH SCH ×2 (07:45→19:08)
[2022-05-19] MEDS: SPIRIVA Respimat (tiotropium) 2.5 mcg/inh Inhaler INH SCH (07:46)
[2022-05-19] MEDS: Pantoprazole VIAL 40 MG VIAL IV SCH ×2 (08:37→20:55)
[2022-05-19] MEDS: oxyCODONE SR 10 mg TAB PO SCH ×2 (08:38→20:54)
[2022-05-19] MEDS: Nystatin TOP POWDER 15 GM BTL TOPICAL SCH ×2 (08:44→21:31)
[2022-05-19] MEDS: Nicotine PATCH 7 MG/24 HR PATCH TRANSDERM SCH (08:44)
[2022-05-19] MEDS: Insulin GLARGINE 100 un/ml 10 ml VIAL SUBCUT SCH (20:55)
[2022-05-20] MEDS: oxyCODONE SR 10 mg TAB PO SCH ×2 (07:43→22:18)
[2022-05-20] MEDS: Nicotine PATCH 7 MG/24 HR PATCH TRANSDERM SCH (07:47)
[2022-05-20] MEDS: Nystatin TOP POWDER 15 GM BTL TOPICAL SCH (07:48)
[2022-05-20] MEDS: Levalbuterol 1.25MG/0.5ML NEB.SOL INH SCH ×2 (08:01→19:23)
[2022-05-20] MEDS: Mometasone/Formoter 200/5 MDI INH SCH ×2 (08:01→19:22)
[2022-05-20] MEDS: SPIRIVA Respimat (tiotropium) 2.5 mcg/inh Inhaler INH SCH (08:02)
[2022-05-20 10:01] LABS: Hematocrit 33 % (35-47); Hemoglobin 10.4 g/dL (12.0-16.0); Mean Corpuscular HGB Conc 32 g/dL (31-36); Mean Corpuscular Hemoglobin 28 pg (27-31); Mean Corpuscular Volume 88 fL (80-97); Mean Platelet Volume 7.9 fL (7.4-10.4); Platelet Count 237 10^3/uL (150-450); Red Blood Count 3.69 10^6 /uL (3.70-4.87); Red Cell Distribution Width 19 % (10-15); White Blood Count 9.5 10^3/uL (3.5-10.8)
[2022-05-20 10:48] LABS: Calcium 8.9 mg/dL (8.6-10.3); eGFR CKD-EPI 99.8 (>60)
[2022-05-20 10:54] LABS: ABS Lymphocytes 0.6 10^3/ul (1.0-4.8); ABS Monocytes 1.1 10^3/ul (0-0.8); ABS Neutrophils 7.8 10^3/ul (1.5-7.7); Lymphocyte % 6.3 %; Nucleated Red Blood Cells % 0.2; RBC Morphology Normal (Normal)
[2022-05-20] MEDS ORDERED: Iron Sucrose 200 MG in NS 0.9% 100 ml BAG 100 ML IVPB ONE (12:00)
[2022-05-20] MEDS: Insulin GLARGINE 100 un/ml 10 ml VIAL SUBCUT SCH (22:19)
[2022-05-21] MEDS: Nystatin TOP POWDER 15 GM BTL TOPICAL SCH ×3 (01:27→21:03)
[2022-05-21 06:31] LABS: Hematocrit 34 % (35-47); Hemoglobin 10.7 g/dL (12.0-16.0); Mean Corpuscular HGB Conc 31 g/dL (31-36); Mean Corpuscular Hemoglobin 29 pg (27-31); Mean Corpuscular Volume 93 fL (80-97); Mean Platelet Volume 8.3 fL (7.4-10.4); Platelet Count 210 10^3/uL (150-450); Red Blood Count 3.69 10^6 /uL (3.70-4.87); Red Cell Distribution Width 19 % (10-15); White Blood Count 9.9 10^3/uL (3.5-10.8)
[2022-05-21 06:45] LABS: CO2 Carbon Dioxide 35 mmol/L (22-32); Calcium 8.7 mg/dL (8.6-10.3); Chloride 98 mmol/L (101-111); Sodium 143 mmol/L (135-145)
[2022-05-21 06:47] LABS: Anion Gap 10 mmol/L (2-11)
[2022-05-21 06:50] LABS: Blood Urea Nitrogen 26 mg/dL (6-24); Glucose 120 mg/dL (70-100)
[2022-05-21 06:51] LABS: eGFR CKD-EPI 88.8 (>60)
[2022-05-21 06:56] LABS: ABS Lymphocytes 1.4 10^3/ul (1.0-4.8); ABS Monocytes 1.3 10^3/ul (0-0.8); ABS Neutrophils 7.2 10^3/ul (1.5-7.7); Eosinophil % 0.3 %; Lymphocyte % 14.5 %; Nucleated Red Blood Cells % 0.4
[2022-05-21] MEDS: Levalbuterol 1.25MG/0.5ML NEB.SOL INH SCH ×2 (07:57→19:51)
[2022-05-21] MEDS: Mometasone/Formoter 200/5 MDI INH SCH ×2 (07:57→19:52)
[2022-05-21] MEDS: SPIRIVA Respimat (tiotropium) 2.5 mcg/inh Inhaler INH SCH (08:22)
[2022-05-21] MEDS: Nicotine PATCH 7 MG/24 HR PATCH TRANSDERM SCH ×2 (10:24→10:36)
[2022-05-21] MEDS: oxyCODONE SR 10 mg TAB PO SCH ×2 (10:25→21:02)
[2022-05-21 13:47] LABS: Rapid COVID-19 Molecular Undetected (Undetected)
[2022-05-21 17:36] LABS: Albumin 3.4 g/dL (3.4-4.7); Albumin/Globulin Ratio 1.06; Gamma Globulin 0.7 g/dL (0.6-1.6); Total Protein(PEP) 6.6 g/dL (6.3 - 7.9)
[2022-05-21] MEDS ORDERED: Haloperidol 5 mg/ml SDV IV/IM 5 MG/ML AMP IV SLOW PU PRN (17:42)
[2022-05-21 20:02] LABS: PCO2 Arterial 60 mmHg (35-45); PO2 Arterial 91 mmHg (80-100)
[2022-05-21] MEDS: Insulin GLARGINE 100 un/ml 10 ml VIAL SUBCUT SCH (21:03)
[2022-05-22] MEDS: Levalbuterol 1.25MG/0.5ML NEB.SOL INH SCH (07:43)
[2022-05-22] MEDS: Mometasone/Formoter 200/5 MDI INH SCH (07:43)
[2022-05-22] MEDS: SPIRIVA Respimat (tiotropium) 2.5 mcg/inh Inhaler INH SCH (08:03)
[2022-05-22] MEDS: Nicotine PATCH 7 MG/24 HR PATCH TRANSDERM SCH (09:29)
[2022-05-22] MEDS: oxyCODONE SR 10 mg TAB PO SCH (09:30)
[2022-05-22] MEDS: Nystatin TOP POWDER 15 GM BTL TOPICAL SCH (09:32)
[2022-05-22] MEDS ORDERED: Potassium Chlor 20 meq TAB.ER PO ONE (13:00)
[2022-05-22 15:44] VITALS: BP 139/59
== END 2022-05-22 18:30 | DRG 133 ==
LOC: ED 12:20 → SUATTDRO 17:34 → EDHOLD 17:34 → MED 05-14 16:33
PROVIDERS: ADMIT Hospitalist; ATTEND Pediatrics

== ENCOUNTER 2022-06-10 11:25 | Inpatient (IN) ==
[2022-06-10 11:41] LABS: Hematocrit 33 % (35-47); Hemoglobin 10.3 g/dL (12.0-16.0); Mean Corpuscular HGB Conc 31 g/dL (31-36); Mean Corpuscular Hemoglobin 29 pg (27-31); Mean Corpuscular Volume 91 fL (80-97); Mean Platelet Volume 7.9 fL (7.4-10.4); Platelet Count 210 10^3/uL (150-450); Red Blood Count 3.61 10^6 /uL (3.70-4.87); Red Cell Distribution Width 22 % (10-15)
[2022-06-10] MEDS ORDERED: Iodixanol (CONTRAST) 320 MG/ML 100 ML SDV IV ONE (11:47)
[2022-06-10 11:57] LABS: Activated Partial Thrombo Time 31.8 seconds (26.0-38.0); INR 1.23 (0.89-1.11)
[2022-06-10 12:11] LABS: PCO2 Arterial 57 mmHg (35-45)
[2022-06-10 12:27] LABS: PO2 Arterial 59 mmHg (80-100)
[2022-06-10 12:40] LABS: Albumin 3.8 g/dL (3.2-5.2); Albumin/Globulin Ratio 1.5 (1-3); Globulin 2.6 g/dL (2-4); HDL Cholesterol 70.7 mg/dL; Potassium 4.1 mmol/L (3.5-5.0); Total Bilirubin 0.6 mg/dL (0.2-1.0); Total Protein 6.4 g/dL (6.4-8.9)
[2022-06-10] MEDS ORDERED: methylPREDNISolone SOD SUCC 125 mg 2 ML VIAL IV ONE (12:42)
[2022-06-10] MEDS ORDERED: Albuterol/Ipratropium NEB.SOL (2.5/0.5 MG) 3 ML NEB.SOLN INH ONE (12:45)
[2022-06-10 12:57] LABS: Magnesium 1.5 mg/dL (1.9-2.7)
[2022-06-10] MEDS ORDERED: Magnesium Sulfate 2 gm BAG 2 GM/50 ML BAG IVPB ONE (12:58)
[2022-06-10] MEDS ORDERED: Cefepime 1 GM in Dextrose 1 GM/50 ML BAG IV ONE (12:58)
[2022-06-10] MEDS: Albuterol/Ipratropium NEB.SOL (2.5/0.5 MG) 3 ML NEB.SOLN INH SCH (12:59)
[2022-06-10 13:10] LABS: High Sensitivity Troponin 1 Hr 100 pg/mL (<15)
[2022-06-10] MEDS ORDERED: Ondansetron 4 mg VIAL 2 MG/ML 2 ml VIAL IV PRN (13:43)
[2022-06-10 13:51] LABS: ABS Basophils 0.1 10^3/ul (0-0.2); ABS Eosinophils 0.1 10^3/ul (0-0.6); ABS Monocytes 0.8 10^3/ul (0-0.8); ABS Neutrophils 5.1 10^3/ul (1.5-7.7); ABS Nucleated RBC 0.1 10^3/ul; Eosinophil % 1.2 %; Lymphocyte % 24.3 %; Nucleated Red Blood Cells % 0.9
[2022-06-10] MEDS ORDERED: Albuterol HFA INHALER 8 gm MDI INH PRN (13:55)
[2022-06-10] MEDS ORDERED: Dextrose 50% Syringe 50 ml 25 GM/50 ML SYRINGE IV PUSH PRN (14:24)
[2022-06-10] MEDS: Azithromycin 500 mg/250 ml NS 500 MG/250 ML BAG IVPB SCH (16:12)
[2022-06-10] MEDS: Levalbuterol 1.25MG/0.5ML NEB.SOL INH SCH ×2 (16:29→21:11)
[2022-06-10] MEDS: Mometasone/Formoter 200/5 MDI INH SCH (21:12)
[2022-06-11] MEDS: Albuterol/Ipratropium NEB.SOL (2.5/0.5 MG) 3 ML NEB.SOLN INH SCH ×3 (00:16→00:23)
[2022-06-11] MEDS: Nystatin TOP POWDER 15 GM BTL TOPICAL SCH ×3 (00:33→22:29)
[2022-06-11] MEDS: Levalbuterol 1.25MG/0.5ML NEB.SOL INH SCH ×5 (02:15→21:08)
[2022-06-11] MEDS: Levalbuterol HFA INHALER MDI INH PRN (05:05)
[2022-06-11 06:18] LABS: Hematocrit 32 % (35-47); Hemoglobin 10.4 g/dL (12.0-16.0); Mean Corpuscular HGB Conc 32 g/dL (31-36); Mean Corpuscular Hemoglobin 29 pg (27-31); Mean Corpuscular Volume 90 fL (80-97); Mean Platelet Volume 8.6 fL (7.4-10.4); Platelet Count 221 10^3/uL (150-450); Red Blood Count 3.59 10^6 /uL (3.70-4.87); Red Cell Distribution Width 21 % (10-15); White Blood Count 8.5 10^3/uL (3.5-10.8)
[2022-06-11 06:38] LABS: Calcium 8.8 mg/dL (8.6-10.3); Potassium 3.8 mmol/L (3.5-5.0)
[2022-06-11 06:44] LABS: ABS Lymphocytes 0.7 10^3/ul (1.0-4.8); ABS Monocytes 0.3 10^3/ul (0-0.8); ABS Neutrophils 7.6 10^3/ul (1.5-7.7); Lymphocyte % 7.7 %; Nucleated Red Blood Cells % 0.4
[2022-06-11] MEDS: methylPREDNISolone SOD SUCC 40 mg/ml 1 ml VIAL IV SCH (09:28)
[2022-06-11] MEDS: Mometasone/Formoter 200/5 MDI INH SCH ×2 (11:25→21:18)
[2022-06-11] MEDS: SPIRIVA Respimat (tiotropium) 2.5 mcg/inh Inhaler INH SCH (11:26)
[2022-06-11] MEDS: Azithromycin 500 mg/250 ml NS 500 MG/250 ML BAG IVPB SCH (14:41)
[2022-06-11 17:37] LABS: Urine Appearance Cloudy; Urine Bilirubin Negative (Negative); Urine Blood 1+ (Negative); Urine Color Yellow; Urine Glucose Negative (Negative); Urine Ketones 1+ (Negative); Urine Nitrite Negative (Negative); Urine Protein 1+(30 mg/dL) (Negative); Urine Specific Gravity 1.018 (1.002-1.030); Urine Urobilinogen Negative (Negative)
[2022-06-11 17:49] LABS: Urine Bacteria 1+ (Absent); Urine Red Blood Cell 2+(6-10/hpf) (Absent); Urine Squamous Epithelial Cell Present (Absent); Urine White Blood Cell Trace(0-5/hpf) (Absent)
[2022-06-11] MEDS ORDERED: Lorazepam PYXIS KEY PRN (18:39)
[2022-06-11] MEDS ORDERED: LORazepam 2 mg VIAL 1 ml IV PUSH PRN (18:39)
[2022-06-12] MEDS: Levalbuterol 1.25MG/0.5ML NEB.SOL INH SCH ×5 (03:04→20:30)
[2022-06-12] MEDS: SPIRIVA Respimat (tiotropium) 2.5 mcg/inh Inhaler INH SCH (07:33)
[2022-06-12] MEDS: Mometasone/Formoter 200/5 MDI INH SCH ×2 (07:34→20:30)
[2022-06-12 07:54] LABS: Hematocrit 35 % (35-47); Hemoglobin 11.2 g/dL (12.0-16.0); Mean Corpuscular HGB Conc 33 g/dL (31-36); Mean Corpuscular Hemoglobin 30 pg (27-31); Mean Corpuscular Volume 91 fL (80-97); Mean Platelet Volume 7.7 fL (7.4-10.4); Platelet Count 262 10^3/uL (150-450); Red Blood Count 3.81 10^6 /uL (3.70-4.87); Red Cell Distribution Width 21 % (10-15); White Blood Count 12.1 10^3/uL (3.5-10.8)
[2022-06-12] MEDS: methylPREDNISolone SOD SUCC 40 mg/ml 1 ml VIAL IV SCH (08:28)
[2022-06-12] MEDS: Nystatin TOP POWDER 15 GM BTL TOPICAL SCH ×2 (08:30→21:00)
[2022-06-12 08:37] LABS: Calcium 9.4 mg/dL (8.6-10.3); HDL Cholesterol 72.1 mg/dL; Potassium 3.5 mmol/L (3.5-5.0); eGFR CKD-EPI 87.4 (>60)
[2022-06-12 09:03] LABS: ABS Basophils 0.1 10^3/ul (0-0.2); ABS Monocytes 1.5 10^3/ul (0-0.8); ABS Neutrophils 8.6 10^3/ul (1.5-7.7); Lymphocyte % 16.6 %
[2022-06-12] MEDS: Azithromycin 500 mg/250 ml NS 500 MG/250 ML BAG IVPB SCH (15:04)
[2022-06-12] MEDS ORDERED: Furosemide 20 mg/2 ml IV VIAL IV ONE (18:25)
[2022-06-12] MEDS: Levalbuterol HFA INHALER MDI INH PRN (18:49)
[2022-06-13 06:12] LABS: Hematocrit 32 % (35-47); Hemoglobin 10.3 g/dL (12.0-16.0); Mean Corpuscular HGB Conc 32 g/dL (31-36); Mean Corpuscular Hemoglobin 29 pg (27-31); Mean Corpuscular Volume 90 fL (80-97); Mean Platelet Volume 9.1 fL (7.4-10.4); Platelet Count 259 10^3/uL (150-450); Red Blood Count 3.51 10^6 /uL (3.70-4.87); Red Cell Distribution Width 21 % (10-15); White Blood Count 11.7 10^3/uL (3.5-10.8)
[2022-06-13 06:31] LABS: Calcium 9.1 mg/dL (8.6-10.3); Potassium 3.6 mmol/L (3.5-5.0); eGFR CKD-EPI 87.4 (>60)
[2022-06-13 06:39] LABS: ABS Basophils 0.1 10^3/ul (0-0.2); ABS Lymphocytes 1.8 10^3/ul (1.0-4.8); ABS Monocytes 1.4 10^3/ul (0-0.8); ABS Neutrophils 8.4 10^3/ul (1.5-7.7); Lymphocyte % 15.1 %; Nucleated Red Blood Cells % 0.1
[2022-06-13] MEDS: Levalbuterol 1.25MG/0.5ML NEB.SOL INH SCH ×4 (07:19→20:57)
[2022-06-13] MEDS: SPIRIVA Respimat (tiotropium) 2.5 mcg/inh Inhaler INH SCH (07:24)
[2022-06-13] MEDS: Mometasone/Formoter 200/5 MDI INH SCH ×2 (07:25→20:57)
[2022-06-13] MEDS: Nystatin TOP POWDER 15 GM BTL TOPICAL SCH ×2 (08:43→20:24)
[2022-06-13] MEDS: Aspirin EC 81 mg TAB.EC (enteric coated) PO SCH (15:51)
[2022-06-14 06:00] LABS: Hematocrit 32 % (35-47); Hemoglobin 10.5 g/dL (12.0-16.0); Mean Corpuscular HGB Conc 33 g/dL (31-36); Mean Corpuscular Hemoglobin 29 pg (27-31); Mean Corpuscular Volume 90 fL (80-97); Mean Platelet Volume 7.2 fL (7.4-10.4); Platelet Count 232 10^3/uL (150-450); Red Blood Count 3.57 10^6 /uL (3.70-4.87); Red Cell Distribution Width 21 % (10-15); White Blood Count 10.7 10^3/uL (3.5-10.8)
[2022-06-14 06:36] LABS: eGFR CKD-EPI 90.3 (>60)
[2022-06-14 07:02] LABS: Anisocytosis 1+; Polychromasia 1+; RBC Morphology Normal (Normal)
[2022-06-14 07:03] LABS: ABS Lymphocytes 1.8 10^3/ul (1.0-4.8); ABS Monocytes 1.2 10^3/ul (0-0.8); ABS Neutrophils 7.7 10^3/ul (1.5-7.7)
[2022-06-14] MEDS: Levalbuterol 1.25MG/0.5ML NEB.SOL INH SCH (07:43)
[2022-06-14] MEDS: SPIRIVA Respimat (tiotropium) 2.5 mcg/inh Inhaler INH SCH (07:44)
[2022-06-14] MEDS: Mometasone/Formoter 200/5 MDI INH SCH (07:44)
[2022-06-14] MEDS: Aspirin EC 81 mg TAB.EC (enteric coated) PO SCH (08:52)
[2022-06-14] MEDS: Nystatin TOP POWDER 15 GM BTL TOPICAL SCH (08:56)
[2022-06-14 10:39] LABS: High Sensitivity Troponin 1 Hr 32 pg/mL (<15)
[2022-06-14 11:53] VITALS: BP 123/75
[2022-06-14] MEDS ORDERED: Levalbuterol 1.25MG/0.5ML NEB.SOL INH PRN (12:59)
== END 2022-06-14 16:45 | DRG 140 ==
LOC: ED 11:25 → SUATTDRO 13:43 → EDHOLD 13:43 → SSU 20:00 → MEDTELE 06-12 00:52
PROVIDERS: ADMIT Student in an Organized Health Care Education/Training Program; ATTEND Student in an Organized Health Care Education/Training Program